=== PATIENT | male | born 1955 | race Caucasian/White ===

== ENCOUNTER → 2016-04-12 | Outpatient (CLI) | payer BC ==
[2016-04-12 13:33] LABS: BLOOD UREA NITROGEN 14 mg/dL (7-22); CALCIUM 9.5 mg/dL (8.7-10.7); CHLORIDE 106 meq/L (98-112); CREATININE 0.7 mg/dL (0.70-1.50); EST GLOMERULAR FILTRATION > 60 (>60 ml/min/1.73m(2)); GLUCOSE 143 mg/dL (78-110); POTASSIUM 4.1 meq/L (3.8-5.2); SODIUM 142 meq/L (135-145)
[2016-04-12 13:34] LABS: ASPARTATE AMINO TRANSFERASE 39 IU/L (21-57); HDL CHOLESTEROL 31 mg/dL (40-150); TRIGLYCERIDES 182 mg/dL (44-200)
[2016-04-15 08:30] LABS: CREATININE, URINE 97.4 MG/DL (15-500)
[2016-04-16 08:58] LABS: MEAN BLOOD GLUCOSE (CALC) 190.39 mg/dL
[2016-04-16 08:59] LABS: HEMOGLOBIN A1C 8.3 % (4.2-6.0)
== END ==
LOC: LAB 07:37
PROVIDERS: ATTEND Internal Medicine
DX: E11.9 Type 2 diabetes mellitus without complications (principal); E78.5 Hyperlipidemia, unspecified; I10 Essential (primary) hypertension
CPT/HCPCS: 80053; 80061; 82043; 83036

== ENCOUNTER 2016-04-21 10:09 | Outpatient (CLI) | payer BC ==
[~2016-04-21 10:09] MED LIST: IMMUNE GLOBULIN IV SCH; NORMAL SALINE 10 ML SYRINGE FLUSH IVP PRN
[2016-04-21 10:47] VITALS: RESP 20; TEMP 97.6
== END 2016-04-21 19:25 | disposition home or self-care (01) ==
LOC: IV THERAPY 10:09
PROVIDERS: ATTEND Emergency Medicine
DX: G61.81 Chronic inflammatory demyelinating polyneuritis (principal)
CPT/HCPCS: 96365; 96366; 99211; J1561 ×2

== ENCOUNTER 2016-05-26 08:59 | Outpatient (CLI) | payer BC ==
[2016-05-26] MEDS ORDERED: IMMUNE GLOBULIN IV SCH ×2 (09:00)
[2016-05-26 13:07] VITALS: RESP 16; TEMP 97.2
== END 2016-05-26 18:10 | disposition home or self-care (01) ==
LOC: IV THERAPY 08:59
PROVIDERS: ATTEND Emergency Medicine
DX: G61.81 Chronic inflammatory demyelinating polyneuritis (principal)
CPT/HCPCS: 96365; 96366; J1561 ×2; 99211

== ENCOUNTER 2016-06-23 09:03 | Outpatient (CLI) | payer BC ==
[~2016-06-23 09:03] MED LIST changes: +IMMUNE GLOBULIN 10% IV ONE; -IMMUNE GLOBULIN IV SCH; +LIDOCAINE W/ SODIUM BICARB 0.5 ML SYR SUBD PRN
[2016-06-23 09:31] VITALS: RESP 18; TEMP 98
== END 2016-06-23 18:54 | disposition home or self-care (01) ==
LOC: IV THERAPY 09:03
PROVIDERS: ATTEND Personal Emergency Response Attendant
DX: G61.81 Chronic inflammatory demyelinating polyneuritis (principal)
CPT/HCPCS: 96365; 96366; 99211; J1561 ×3

== ENCOUNTER → 2016-07-13 | Outpatient (CLI) | payer BC ==
[2016-07-13 07:49] LABS: CREATININE, URINE 100.8 MG/DL (15-500); HEMOGLOBIN A1C 6.97 % (4.2-6.0)
== END ==
LOC: LAB 07:24
PROVIDERS: ATTEND Internal Medicine
DX: E11.9 Type 2 diabetes mellitus without complications (principal); Z79.4 Long term (current) use of insulin
CPT/HCPCS: 36415; 82043; 83036

== ENCOUNTER 2016-07-20 09:02 | Outpatient (CLI) | payer BC ==
[~2016-07-20 09:02] MED LIST changes: -IMMUNE GLOBULIN 10% IV ONE
[2016-07-20 10:01] VITALS: RESP 18; TEMP 97.9
== END 2016-07-20 18:23 | disposition home or self-care (01) ==
LOC: IV THERAPY 09:02
PROVIDERS: ATTEND Emergency Medicine
DX: G61.81 Chronic inflammatory demyelinating polyneuritis (principal)
CPT/HCPCS: 96365; 96366; 99211; J1561 ×3

== ENCOUNTER 2016-08-18 09:08 | Outpatient (CLI) | payer BC ==
[2016-08-18 09:45] VITALS: RESP 20; TEMP 98.2
== END 2016-08-18 20:02 | disposition other institution (70) ==
LOC: IV THERAPY 09:08
PROVIDERS: ATTEND Personal Emergency Response Attendant
DX: G61.81 Chronic inflammatory demyelinating polyneuritis (principal)
CPT/HCPCS: 96365; 96366; 99211; J1561 ×3

== ENCOUNTER 2016-08-18 19:56 | Observation (INO) | payer BC ==
[2016-08-18] MEDS ORDERED: LIDOCAINE W/ SODIUM BICARB 0.5 ML SYR SUBD PRN (20:02)
[2016-08-18] MEDS ORDERED: ACETAMINOPHEN 325 MG TABLET PO PRN (20:02)
[2016-08-18] MEDS ORDERED: CALCIUM CARBONATE 500 MG (TUMS) CHEWABLE TABLET PO PRN (20:02)
[2016-08-18] MEDS ORDERED: ONDANSETRON 4 MG/2 ML VIAL IVP PRN (20:02)
[2016-08-18] MEDS ORDERED: NORMAL SALINE 10 ML SYRINGE FLUSH IVP PRN (20:02)
[2016-08-18] MEDS ORDERED: SODIUM CHLORIDE 0.9% IV ONE (20:05)
[2016-08-18] MEDS ORDERED: METHYLPREDNISOLONE SUCC IV ONE (20:05)
[2016-08-18] MEDS ORDERED: LORATADINE 10 MG TABLET PO ONE (20:05)
[2016-08-18] MEDS ORDERED: ALBUTEROL SULFATE 8.5 GM HFA INHALER INH PRN (20:06)
[2016-08-18] MEDS ORDERED: Insulin Sliding Scale Protocol SUBCUT PRN (20:07)
[2016-08-18] MEDS ORDERED: DEXTROSE 31 GM GEL PO PRN (20:07)
[2016-08-18] MEDS ORDERED: DEXTROSE 50%-WATER SYRINGE 50 ML SYRINGE IVP PRN (20:07)
[2016-08-18] MEDS ORDERED: Glucagon Inj Vial 1 MG/ML VIAL IM PRN (20:07)
--- NOTE | 2016-08-18 20:15 | PDOC ---
History and Physical - History of Present Illness Date and Time of Service: 08/18/2016, 2012 Chief Complaint: Tongue swelling History of Present Illness: This very pleasant 60-year-old male who has chronic inflammatory demyelinating polyneuropathy, diabetes mellitus type II, hypercholesterolemia, and hypertension, that have led him to have to use IVIG therapy, and he was here today for an infusion prior to going to [place] as it does help his legs feel better. During his infusion, he developed a rash on his back which has happened before and he usually takes Benadryl for this and it seems to help. This time, however, he had to take a second dose of Benadryl. His tongue swelled and his face swelled. He was breathing okay and did not complain of any wheezing, shortness breath, or chest pain. He denied any GI symptoms of nausea, vomiting, diarrhea, or constipation. Blood pressures are presumably normal. The patient has never had this reaction to IVIG therapy before. He has had several doses and is been on this medication since March 2015. He states to me that he was going to visit with his neurologist, Dr. Etienne, and was going to switch soon to CellCept or possibly a different medication. Even steroids. I was called by the nurse providing the infusion as the intervention in this situation. Nothing was tried prior for these symptoms except the Benadryl as mentioned. Past Medical History Medical History: 1. Diabetes mellitus, type 2 (Onset less than 10 years. Early slowly more uncomfortable neuropathy in [place] distal feet. No known retinopathy or nephropathy. No CV disease. ). 2. CIDP (chronic inflammatory demyelinating polyneuropathy), with primarily leg weakness. 3. Asthma ( Seasonal with exposure to allergans, particularly when cutting grass. Singular helpful. Rarelu uses an inhaler. Rare wheezing with exposure. No exercise intolerance.). 4. BPH. 5. Hypertension. 6. Hypercholesterolemia. 7. Peripheral neuropathy Surgical History: 1. Right knee surgery. 2. Right hip replacement. 3. Right ankle surgery. 4. Right elbow surgery. 5. Right shoulder surgery. 6. Cataract removal Pertinent Family History: He states his mother has autoimmune disease. Past Social History: Does not smoke or drink. for 28 years. Has 2 healthy children. 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 Tobacco Use: Never Smoker Substance Use Type: None Alcohol Use: None Medication / Allergies Home Medications: Home Medications Medication Instructions Recorded Confirmed Type Aspirin 81 mg ORAL QD 90 Days 08/31/10 05/26/16 Clinic Cholecalciferol (Vitamin D3) 1 cap PO DAILY cap 02/24/13 05/26/16 History [Vitamin D3] Cinnamon Bark [Cinnamon] 1 cap PO BID cap 02/24/13 05/26/16 History Multivitamin [Multivitamins] 1 tab PO DAILY tab 02/24/13 05/26/16 History Blood Sugar Diagnostic [Onetouch 1 each IN QD #100 strip 05/18/14 05/26/16 Clinic Ultra Test Strips] [place]-3 Fatty Acids [Fish Oil] 300 mg PO DAILY 03/01/15 05/26/16 History [place], Insulin Disposable [Pen 1 each MC QD #100 each 05/04/16 05/26/16 Clinic [place]] Metformin HCl 1 tab ORAL BID #180 tab 07/12/16 Clinic Canagliflozin [Invokana] 1 tab PO DAILY #90 tab 07/13/16 Clinic Duloxetine HCl [Cymbalta] 1 cap PO DAILY #90 cap 07/13/16 Clinic Glipizide 1 tab PO BID #180 tab 07/13/16 Clinic Liraglutide [Victoza 3-Ant] 1.8 mg SQ DAILY #6 each 07/13/16 Clinic Olmesartan Medoxomil [Benicar] 1 tab PO QD #90 tab 07/13/16 Clinic Pregabalin [Lyrica] 2 cap ORAL BID #360 capsule 07/13/16 Clinic Rosuvastatin Calcium [Crestor] 1 tab ORAL QHS #90 tab 07/13/16 Clinic Tamsulosin HCl 1 cap ORAL QD #90 capsule 08/18/16 Clinic Allergies/Adverse Reactions: Allergies Allergy/AdvReac Type Severity Reaction Status Date / Time amlodipine Allergy Intermediate RASH Verified 08/18/16 09:50 atorvastatin Allergy Intermediate RASH Verified 08/18/16 09:50 PIEDAD Inhibitors AdvReac Intermediate Chronic Verified 08/18/16 09:50 cough atorvastatin calcium AdvReac Intermediate myalgia Verified 08/18/16 09:50 [From Lipitor] amlodipine besylate AdvReac Mild peripheral Verified 08/18/16 09:50 [From Norvasc] edema Review of Systems - Review of Systems All Systems: Reviewed & No Additional Complaints Except as Stated (I did a 12 point review of systems and it was negative except for that stated in history present illness and that noted below.) - Constitutional Constitutional: REPORTS: Weight Loss (A 13 pounds, but states most of this was in the lower extremities.) - Mouth/Throat Mouth/Throat Exam: REPORTS: Other (Swollen tongue) - Respiratory Respiratory: REPORTS: Negative System Review - Cardiovascular Cardiovascular: REPORTS: Edema (Gets edema in his lower extremity.) - Gastrointestinal Gastrointestinal / Abdominal: REPORTS: Negative System Review - Genitourinary Genitourinary: REPORTS: Other (Controlled BPH with Flomax) - Musculoskeletal Musculoskeletal: REPORTS: Muscle Pain (Muscle pain and weakness are primarily noted in the lower extremities. This is due to the chronic inflammatory demyelinating neuropathy) - Additonal Details Additional ROS Details: Skin rash as discussed on back. Exam - Vitals Vital Signs: Vital Signs Height 6 ft 2 in Vital Signs - Last Taken Temperature 96.9 F 08/18/16 20:15 Pulse Rate 84 08/18/16 20:15 Respiratory Rate 20 08/18/16 20:15 Blood Pressure 128/93 08/18/16 20:15 Pulse Ox 95 08/18/16 20:15 On room air - General General Appearance: POSITIVE: No Acute Distress, Cooperative - Head Head Exam: POSITIVE: Normal Inspection, Normocephalic, Atraumatic - Eye Eye Exam: POSITIVE: EOMI, No Scleral Icterus - ENT ENT Exam: POSITIVE: Mucous Membranes Moist Additonal ENT Exam Details: Tongue was quite swollen. Sometimes the words that the patient spoke were spoken with a thick list which is not normal for him. This was due to the enlarged tongue. The patient's right cheek and face was swollen compared to the left. In fact about twice the size. - Neck Neck Exam: POSITIVE: Normal Inspection, No Tenderness, No Thyromegaly - Respiratory Respiratory Exam: POSITIVE: Clear to Auscultation - Bilaterally, Breathing Non Labored, Normal to Percussion and Palpation - Cardiovascular Cardiovascular Exam: POSITIVE: RRR, No Murmur, No Clicks, No Gallops, No Rubs, No JVD - GI/Abdominal GI/Abdominal Exam: POSITIVE: Normal Bowel Sounds, Non Tender, Non Distended, Soft - Rectal Rectal Exam: POSITIVE: Deferred - External Exam: POSITIVE: Deferred Exam: POSITIVE: Deferred - Extremities Extremities Exam: POSITIVE: No Clubbing Present, No Edema Present, No Cyanosis Present - Back Back Exam: POSITIVE: Normal Inspection, No CVA Tenderness, Rash Noted (Very slight macular rash on the lower aspect of the patient's back with minimal erythema.) - Neurological Neurological Exam: POSITIVE: Alert, Oriented x 3, No Facial Droop, Speech Intact / Clear, Moves All Extremities Equally, Abnormal Gait (The patient's gait is slightly antalgic. This is his baseline since he developed chronic inflammatory demyelinating polyneuropathy) - Psychiatric Psychiatric Exam: POSITIVE: Normal Affect, Normal Mood - Integumentary Integumentary Exam: POSITIVE: Rash (Rash as mentioned on back, more prominent on the right side than the left.) Results - Labs Labs - Last 24 Hours: I am ordering a comprehensive metabolic panel, a serum IgE level. I am also ordering a CBC with differential. I will get an ESR level as well Assessment and Plan - Patient Problems (1) Acute allergic reaction Status: Acute Qualifiers: Encounter type: initial encounter Qualified Description: Acute allergic reaction, initial encounter Qualifier Code(s): (T78.40XA) Allergy , unspecified, initial encounter (2) Chronic inflammatory demyelinating polyneuropathy Status: Acute (3) Diabetes mellitus type II, controlled Status: Acute Qualifiers: Diabetes mellitus complication status: with neurologic complications Diabetes mellitus complication detail: with autonomic neuropathy Diabetes mellitus termite control service representative insulin use: without termite control service representative use Qualified Description : Controlled type 2 diabetes mellitus with diabetic autonomic neuropathy, without long-term current use of insulin Qualifier Code(s): (E11.43) Type 2 diabetes mellitus with diabetic autonomic (poly)neuropathy (4) Hypertension Status: Acute Qualifiers: Hypertension type: essential hypertension Qualified Description: Essential hypertension Qualifier Code(s): (I10) Essential (primary) hypertension (5) Hypercholesterolemia Status: Acute (6) Peripheral neuropathy Status: Acute Qualifiers: Peripheral neuropathy type: chronic inflammatory demyelinating polyneuritis Qualified Description: Chronic inflammatory demyelinating polyneuritis Qualifier Code(s): (G61.81) Chronic inflammatory demyelinating polyneuritis - Assessment / Plan Additional Assessment/Plan Details: Admit the patient for observation. The patient has 2 of 4 systems involved. Allergic reaction, including respiratory system and skin. GI system and vascular system are not involved as of yet. Given the reaction with tongue swelling and facial swelling and rash, I think the patient needs to be monitored in the hospital with steroids/ antihistamines/H2 blockers/atypical antihistamines with medicines like Claritin. If the patient improves overnight, then I think we could potentially discharge him home on 2 weeks of oral medications to help prevent any delayed reactions. Monitor blood pressures. Keep the patient on telemetry monitoring. IV fluids. Continue home medications. Some of the medication such as cinnamon and fish oil will be held. They can be resumed on an outpatient basis. Ultimately, I think the IVIG probably needs to stop as this could be indicative of an allergic response. Patient could also be at risk for serum sickness if he continues this medication. I will get a serum IgE level to look at that as well. I discussed this with the patient and his . I discussed the above plan with the patient and his and they agreed Photo / Body Diagrams - Uploaded Photos Uploaded Photos:
[2016-08-18 20:47] LABS: BASOPHILS # (AUTO) 0.02 10*3/UL; BASOPHILS % (AUTO) 0.4 % (0-1); EOSINOPHILS # (AUTO) 0.09 10*3/UL; EOSINOPHILS % (AUTO) 1.7 % (0-8); HEMATOCRIT 47.1 % (42.0-52.0); LYMPHOCYTES # (AUTO) 0.99 10*3/uL; MEAN CORPUSCULAR HEMOGLOBIN 31.3 PG (27-31); MEAN CORPUSCULAR VOLUME 92.2 FL (80-90); MEAN PLATELET VOLUME 10.1 FL (7.4-12.2); MONOCYTES # (AUTO) 0.34 10*3/UL (0.3-0.8); MONOCYTES % (AUTO) 6.5 % (5-15); NEUTROPHILS # (AUTO) 3.82 10*3/UL; NEUTROPHILS % (AUTO) 72.4 % (50-80); RED BLOOD COUNT 5.11 10^6/uL (4.70-6.10)
[2016-08-18 20:48] LABS: PLATELET MORPHOLOGY COMMENT NORMAL MORPHOLOGY (NORM); RBC MORPHOLOGY COMMENT NORMAL MORPHOLOGY (NORM); WBC MORPHOLOGY COMMENT NORMAL MORPHOLOGY (NORM)
[2016-08-18] MEDS: Sodium Chloride 0.9% 1,000 ML PRIMARY IV SCH (20:49)
[2016-08-18 20:55] LABS: BLOOD UREA NITROGEN 22 mg/dL (7-22); CALCIUM 9.4 mg/dL (8.7-10.7); EST GLOMERULAR FILTRATION > 60 (>60 ml/min/1.73m(2)); SERUM ALBUMIN 4.1 g/dL (3.5-4.8)
[2016-08-18] MEDS ORDERED: Rosuvastatin Tab 20 MG TAB PO SCH (21:00)
[2016-08-18] MEDS: Pregabalin Cap 150mg capsule PO SCH (22:17)
[2016-08-18] MEDS: diphenhydrAMINE 25 MG CAPSULE PO SCH (22:18)
[2016-08-18] MEDS: Famotidine Inj 20 MG in Normal Saline Flush 10 ML IVP SCH (22:18)
[2016-08-19] MEDS: diphenhydrAMINE 25 MG CAPSULE PO SCH ×2 (03:20→08:48)
[2016-08-19] MEDS: methylPREDNISolone 125 MG/2 ML VIAL IVP SCH ×2 (03:21→09:31)
[2016-08-19] MEDS: Sodium Chloride 0.9% 1,000 ML PRIMARY IV SCH (05:10)
[2016-08-19 05:59] LABS: BASOPHILS # (AUTO) 0.01 10*3/UL; BASOPHILS % (AUTO) 0.2 % (0-1); EOSINOPHILS # (AUTO) 0.01 10*3/UL; EOSINOPHILS % (AUTO) 0.2 % (0-8); HEMATOCRIT 46.6 % (42.0-52.0); HEMOGLOBIN 15.8 g/dL (14.0-18.0); LYMPHOCYTES # (AUTO) 0.52 10*3/uL; MEAN CORPUSCULAR HEMOGLOBIN 31.2 PG (27-31); MEAN CORPUSCULAR HGB CONC 33.9 g/dL (33-37); MEAN CORPUSCULAR VOLUME 91.9 FL (80-90); MEAN PLATELET VOLUME 10.6 FL (7.4-12.2); MONOCYTES # (AUTO) 0.03 10*3/UL (0.3-0.8); MONOCYTES % (AUTO) 0.6 % (5-15); NEUTROPHILS # (AUTO) 4.07 10*3/UL; NEUTROPHILS % (AUTO) 87.8 % (50-80); RED BLOOD COUNT 5.07 10^6/uL (4.70-6.10)
[2016-08-19 06:16] LABS: BLOOD UREA NITROGEN 24 mg/dL (7-22); CALCIUM 9.5 mg/dL (8.7-10.7); EST GLOMERULAR FILTRATION > 60 (>60 ml/min/1.73m(2))
[2016-08-19 06:33] LABS: PLATELET MORPHOLOGY COMMENT NORMAL MORPHOLOGY (NORM); RBC MORPHOLOGY COMMENT NORMAL MORPHOLOGY (NORM); WBC MORPHOLOGY COMMENT NORMAL MORPHOLOGY (NORM)
[2016-08-19] MEDS ORDERED: Insulin Lispro Flexpen 300 UNIT/3 ML INSULN.PEN SUBCUT SCH (07:00)
[2016-08-19] MEDS ORDERED: metFORMIN 500 MG TABLET PO SCH (07:00)
[2016-08-19] MEDS ORDERED: GlipiZIDE Tab 5 MG TABLET PO SCH (07:00)
[2016-08-19 08:00] VITALS: RESP 16; TEMP 97.8
[2016-08-19] MEDS: Famotidine Inj 20 MG in Normal Saline Flush 10 ML IVP SCH (08:45)
[2016-08-19] MEDS: Pregabalin Cap 150mg capsule PO SCH (08:47)
[2016-08-19] MEDS ORDERED: Multivitamin Tab 1 TAB PO SCH (09:00)
[2016-08-19] MEDS ORDERED: DULOXETINE 30 MG CAPSULE PO SCH (09:00)
[2016-08-19] MEDS ORDERED: LORATADINE 10 MG TABLET PO SCH (09:00)
[2016-08-19] MEDS ORDERED: TAMSULOSIN 0.4 MG CAPSULE PO SCH (09:00)
[2016-08-19] MEDS ORDERED: ASPIRIN 81 MG (BABY) CHEWABLE TABLET PO SCH (09:00)
[2016-08-19] MEDS ORDERED: CHOLECALCIFEROL 1000 IU TABLET PO SCH (09:00)
[2016-08-19] MEDS ORDERED: CANAGLIFLOZIN PO SCH (09:00)
--- NOTE | 2016-08-19 10:28 | DCSUMMARY ---
Hospitalization Summary Admit Date: 08/18/16 Discharge Date: 08/19/16 Primary Diagnosis:: allergic reaction to IVIG Hospital Course: This is a very pleasant 60-year-old male with CIDP, diabetes mellitus, hypertension, hypercholesterolemia, neuropathy, who presented with swelling of his tongue and cheek and a rash during and after an infusion of IVIG. He takes that for his CIDP. We admitted the patient for observation, particularly in the setting of this possibly being a serum sickness reaction versus just an allergic reaction and the patient did very well with Solu-Medrol, fluids, H2 blockers, antihistamines, and time. His tongue is no longer swollen and his cheek is back to normal size. He had no problems with shortness of breath. No hypotension was noted. The patient denies any chest pain or shortness breath. He states overall he is back to his normal state of health. Patient is traveling to [place] and is flying out Sunday, and I think she is okay to go on his trip. I have warned him and his that there could be a secondary allergic reaction that flares in a week or 2, but we will try to prevent that with medications. I have advised him not to go on IVIG in the future. I will added to his allergy list. We do have an IgE level pending and we also have a vitamin B12 and folate level pending. Assessment and Plan: 1. As per discharge assessments noted 2. Disposition: Patient is discharged home. 3. Condition on discharge, stable and improved. 4. Diet: regular diet/diabetic diet 5. Activities: resume normal activities 6. Follow-Up: 1. See Dr. Brown upon return from [place] 2. 7. Medications at the Time of Discharge: Home Medications Medication Instructions Recorded Confirmed Type Aspirin 81 mg ORAL QD 90 Days 08/31/10 05/26/16 Clinic Cholecalciferol (Vitamin D3) 1 cap PO DAILY cap 02/24/13 05/26/16 History [Vitamin D3] Cinnamon Bark [Cinnamon] 1 cap PO BID cap 02/24/13 05/26/16 History Multivitamin [Multivitamins] 1 tab PO DAILY tab 02/24/13 05/26/16 History Blood Sugar Diagnostic [Onetouch 1 each IN QD #100 strip 05/18/14 05/26/16 Clinic Ultra Test Strips] [place]-3 Fatty Acids [Fish Oil] 300 mg PO DAILY 03/01/15 05/26/16 History [place], Insulin Disposable [Pen 1 each MC QD #100 each 05/04/16 05/26/16 Clinic [place]] Metformin HCl 1 tab ORAL BID #180 tab 07/12/16 Clinic Canagliflozin [Invokana] 1 tab PO DAILY #90 tab 07/13/16 Clinic Duloxetine HCl [Cymbalta] 1 cap PO DAILY #90 cap 07/13/16 Clinic Glipizide 1 tab PO BID #180 tab 07/13/16 Clinic Liraglutide [Victoza 3-Ant] 1.8 mg SQ DAILY #6 each 07/13/16 Clinic Olmesartan Medoxomil [Benicar] 1 tab PO QD #90 tab 07/13/16 Clinic Pregabalin [Lyrica] 2 cap ORAL BID #360 capsule 07/13/16 [facility] Rosuvastatin Calcium [Crestor] 1 tab ORAL QHS #90 tab 07/13/16 Clinic Tamsulosin HCl 1 cap ORAL QD #90 capsule 08/18/16 Clinic Albuterol [PROVENTIL HFA] 1 - 2 inh IH .Q4-6H PRN #1 inhaler 08/19/16 Rx Loratadine [Claritin] 10 mg PO DAILY #14 tablet 08/19/16 Rx Ranitidine HCl [Zantac 75] 75 mg PO BID #30 tab 08/19/16 Rx methylPREDNISolone Dose Pack 1 each PO ASDIR #1 pkg 08/19/16 Rx [Medrol Dose Pack] 8. Time, care, counseling and coordination of care for this discharge is greater than 30 minutes. Exam - Vitals Vital Signs: Vital Signs Temperature 97.8 F Temperature Source Temporal Artery Scan Pulse Rate [Pulse Oximeter] 112 Pulse Rate 110 Respiratory Rate 16 Blood Pressure [Right Arm] 133/75 Pulse Ox 91 Oxygen Delivery Method Room Air Height 6 ft 2 in Weight 249 lb 3.2 oz - General General Appearance: POSITIVE: No Acute Distress, Cooperative - Head Head Exam: POSITIVE: Normal Inspection, Normocephalic, Atraumatic - Eye Eye Exam: POSITIVE: No Scleral Icterus - ENT ENT Exam: POSITIVE: Normal Exam, Mucous Membranes Moist Additonal ENT Exam Details: Tongue is down to normal size. - Respiratory Respiratory Exam: POSITIVE: Clear to Auscultation - Bilaterally, Breathing Non Labored - Cardiovascular Cardiovascular Exam: POSITIVE: No Murmur, No Clicks, No Gallops, No Rubs, Tachycardia - GI/Abdominal GI/Abdominal Exam: POSITIVE: Normal Bowel Sounds, Non Tender, Non Distended, Soft - Extremities Extremities Exam: POSITIVE: No Clubbing Present, No Edema Present, No Cyanosis Present - Neurological Neurological Exam: POSITIVE: Alert, Oriented x 3, No Facial Droop, Speech Intact / Clear, Moves All Extremities Equally Data Perinent Studies: Laboratory Results 08/18/16 08/19/16 Range/Units 20:38 04:45 WBC 5.27 4.64 L (4.8-10.8) 10^3/uL RBC 5.11 5.07 (4.70-6.10) 10^6/uL Hgb 16.0 15.8 (14.0-18.0) g/dL Hct 47.1 46.6 (42.0-52.0) % MCV 92.2 H 91.9 H (80-90) FL MCH 31.3 H 31.2 H (27-31) PG MCHC 34.0 33.9 (33-37) g/dL RDW Std Deviation 48.9 47.6 (39-50) fL RDW Coeff of [place] 14.9 H 14.7 H (11.5-14.5) % Plt Count 196 196 (140-350) 10*3/uL MPV 10.1 10.6 (7.4-12.2) FL Immature Gran % (Auto) 0.2 0 (0-5) % Neut % (Auto) 72.4 87.8 H (50-80) % Lymph % (Auto) 18.8 11.2 (10-50) % [place] % (Auto) 6.5 0.6 L (5-15) % Eos % (Auto) 1.7 0.2 (0-8) % Baso % (Auto) 0.4 0.2 (0-1) % Immature Gran # (Auto) 0.01 0 10*3/UL Neut # (Auto) 3.82 4.07 10*3/UL Lymph # (Auto) 0.99 0.52 10*3/uL [place] # (Auto) 0.34 0.03 L (0.3-0.8) 10*3/UL Eos # (Auto) 0.09 0.01 10*3/UL Baso # (Auto) 0.02 0.01 10*3/UL WBC Morphology Comment Normal morphology Normal morphology (NORM) Plt Morphology Comment Normal morphology Normal morphology (NORM) RBC Morph Comment Normal morphology Normal morphology (NORM) ESR 7 (0-15) MM/HR Sodium 139 138 (135-145) meq/L Potassium 4.4 4.6 (3.8-5.2) meq/L Chloride 104 106 (98-112) meq/L Carbon Dioxide 22 L 21 L (23-33) meq/L Anion Gap 13 11 (5-20) BUN 22 24 H (7-22) mg/dL Creatinine 0.8 0.8 (0.70-1.50) mg/dL Estimated GFR > 60 > 60 (>60 ml/min/1.73m(2)) BUN/Creatinine Ratio 27.50 H 30.00 H (6-20) Glucose 141 H 270 H (78-110) mg/dL Calculated Osmolality 292.0 299.0 H (267-292) mOsm/kg Calcium 9.4 9.5 (8.7-10.7) mg/dL Total Bilirubin 0.5 (0.3-1.2) mg/dL AST 49 (21-57) IU/L ALT 50 (21-72) IU/L Alkaline Phosphatase 55 (38-126) IU/L Total Protein 9.1 H (6.1-8.0) g/dL Albumin 4.1 (3.5-4.8) g/dL Globulin 5.0 H (2.50-4.10) g/dL Albumin/Globulin Ratio 0.80 L (1.3-2.0) mg/g Patient Problems - Patient Problem List (1) Acute allergic reaction Current Visit: Yes Status: Resolved Qualifiers: Encounter type: subsequent encounter Qualified Description: Acute allergic reaction, subsequent encounter Qualifier Code(s): (T78.40XD) Allergy, unspecified, subsequent encounter (2) Chronic inflammatory demyelinating polyneuropathy Current Visit: Yes Status: Acute (3) Diabetes mellitus type II, controlled Current Visit: Yes Status: Acute Qualifiers: Diabetes mellitus complication status: with neurologic complications Diabetes mellitus complication detail: with autonomic neuropathy Diabetes mellitus director long term care insulin use: without jail use Qualified Description : Controlled type 2 diabetes mellitus with diabetic autonomic neuropathy, without long-term current use of insulin Qualifier Code(s): (E11.43) Type 2 diabetes mellitus with diabetic autonomic (poly)neuropathy, (Z79.4) director long term care (current) use of insulin (4) Hypertension Current Visit: Yes Status: Acute Qualifiers: Hypertension type: essential hypertension Qualified Description: Essential hypertension Qualifier Code(s): (I10) Essential (primary) hypertension (5) Hypercholesterolemia Current Visit: Yes Status: Acute (6) Peripheral neuropathy Current Visit: Yes Status: Acute Qualifiers: Peripheral neuropathy type: chronic inflammatory demyelinating polyneuritis Qualified Description: Chronic inflammatory demyelinating polyneuritis Qualifier Code(s): (G61.81) Chronic inflammatory demyelinating polyneuritis
== END 2016-08-19 10:45 | disposition home or self-care (01) ==
LOC: MED/SURG 20:02
PROVIDERS: ADMIT Family Medicine; ATTEND Family Medicine
DX: R22.0 Localized swelling, mass and lump, head (principal); T50.Z15A Adverse effect of immunoglobulin, initial encounter
CPT/HCPCS: 36415 ×2; 80048; 80053; 82607; 82746; 82785; 82948 ×2; 85025 ×2; 85652; 94761; 96374 ×2; J1815; J2930 ×2; Q0163 ×2; J7030; J7050

== ENCOUNTER 2016-09-29 08:54 | Outpatient (CLI) | payer BC ==
[2016-09-29] MEDS ORDERED: ACETAMINOPHEN 500 MG TABLET PO PRN (09:00)
[2016-09-29] MEDS ORDERED: diphenhydrAMINE 25 MG CAPSULE PO PRN (09:00)
[2016-09-29 09:21] VITALS: RESP 18
[2016-09-29] MEDS: NORMAL SALINE 10 ML SYRINGE FLUSH IVP PRN (09:44)
[2016-09-29] MEDS: methylPREDNISolone 125 MG/2 ML VIAL IVP PRN (09:44)
[2016-09-29] MEDS: RITUXIMAB IV SCH (09:53)
[2016-09-29] MEDS: SODIUM CHLORIDE 0.9% IV SCH (09:53)
[2016-09-29] MEDS: LIDOCAINE W/ SODIUM BICARB 0.5 ML SYR SUBD PRN (09:55)
[2016-09-29 19:00] VITALS: TEMP 98.1
== END 2016-09-29 18:59 | disposition home or self-care (01) ==
LOC: IV THERAPY 08:54
PROVIDERS: ATTEND Specialist
DX: G61.81 Chronic inflammatory demyelinating polyneuritis (principal)
CPT/HCPCS: 96365; 96366; 99211; J2930; J9310; J7030

== ENCOUNTER 2016-10-17 09:01 | Outpatient (CLI) | payer BC ==
[~2016-10-17 09:01] MED LIST changes: +ACETAMINOPHEN 500 MG TABLET PO ONE; +RITUXIMAB IV SCH; +SODIUM CHLORIDE 0.9% IV SCH; +diphenhydrAMINE 25 MG CAPSULE PO ONE; +methylPREDNISolone 125 MG/2 ML VIAL IV ONE
[2016-10-17 09:32] LABS: BASOPHILS # (AUTO) 0.04 10*3/UL; BASOPHILS % (AUTO) 0.8 % (0-1); EOSINOPHILS # (AUTO) 0.29 10*3/UL; EOSINOPHILS % (AUTO) 5.7 % (0-8); HEMATOCRIT 47.6 % (42.0-52.0); HEMOGLOBIN 16.4 g/dL (14.0-18.0); LYMPHOCYTES # (AUTO) 1.09 10*3/uL; MEAN CORPUSCULAR HEMOGLOBIN 31.4 PG (27-31); MEAN CORPUSCULAR HGB CONC 34.5 g/dL (33-37); MEAN CORPUSCULAR VOLUME 91.2 FL (80-90); MEAN PLATELET VOLUME 10.7 FL (7.4-12.2); MONOCYTES # (AUTO) 0.29 10*3/UL (0.3-0.8); MONOCYTES % (AUTO) 5.7 % (5-15); NEUTROPHILS # (AUTO) 3.34 10*3/UL; NEUTROPHILS % (AUTO) 65.6 % (50-80); RED BLOOD COUNT 5.22 10^6/uL (4.70-6.10)
[2016-10-17 10:31] LABS: PLATELET MORPHOLOGY COMMENT NORMAL MORPHOLOGY (NORM); RBC MORPHOLOGY COMMENT NORMAL MORPHOLOGY (NORM); WBC MORPHOLOGY COMMENT NORMAL MORPHOLOGY (NORM)
[2016-10-17 10:38] VITALS: RESP 18; TEMP 98.6
[2016-10-17 10:48] LABS: BLOOD UREA NITROGEN 24 mg/dL (7-22); CALCIUM 9.6 mg/dL (8.7-10.7); EST GLOMERULAR FILTRATION > 60 (>60 ml/min/1.73m(2)); SERUM ALBUMIN 4.5 g/dL (3.5-4.8)
== END 2016-10-17 14:52 | disposition home or self-care (01) ==
LOC: IV THERAPY 09:01
PROVIDERS: ATTEND Emergency Medicine
DX: G61.81 Chronic inflammatory demyelinating polyneuritis (principal)
CPT/HCPCS: 80053; 85025; 96365; 96366; 99211; J2930; J9310; J7030

== ENCOUNTER → 2016-10-20 | Outpatient (CLI) | payer BC ==
--- NOTE | 2016-10-20 12:33 | DI ---
KUB and UPRIGHT ABDOMEN, 10/20/2016 11:11 AM: Clinical History: Generalized abdominal pain. Previous Exam: None at this facility. There are no soft tissue or bony abnormalities. Bowel gas pattern, psoas margins, and flank stripes a re normal. There is no free air or fluid. There are no abnormal radiodensities. Reading: Normal KUB and upright exam.
[2016-10-20 12:37] LABS: BASOPHILS % (AUTO) 1.4 % (0-1); EOSINOPHILS % (AUTO) 1.4 % (0-8); HEMATOCRIT 51.9 % (42.0-52.0); HEMOGLOBIN 17.7 g/dL (14.0-18.0); MEAN CORPUSCULAR HEMOGLOBIN 30.6 PG (27-31); MEAN CORPUSCULAR HGB CONC 34.1 g/dL (33-37); MEAN CORPUSCULAR VOLUME 89.8 FL (80-90); MEAN PLATELET VOLUME 10.7 FL (7.4-12.2); MONOCYTES # (AUTO) 0.53 10*3/UL (0.3-0.8); MONOCYTES % (AUTO) 7.5 % (5-15); NEUTROPHILS # (AUTO) 4.85 10*3/UL; NEUTROPHILS % (AUTO) 68.2 % (50-80); RED BLOOD COUNT 5.78 10^6/uL (4.70-6.10)
[2016-10-20 12:39] LABS: PLATELET MORPHOLOGY COMMENT NORMAL MORPHOLOGY (NORM); RBC MORPHOLOGY COMMENT NORMAL MORPHOLOGY (NORM); WBC MORPHOLOGY COMMENT NORMAL MORPHOLOGY (NORM)
[2016-10-20 12:42] LABS: BLOOD UREA NITROGEN 16 mg/dL (7-22); BUN/CREATININE RATIO 17.77 (6-20); EST GLOMERULAR FILTRATION > 60 (>60 ml/min/1.73m(2)); SERUM ALBUMIN 4.7 g/dL (3.5-4.8)
== END ==
LOC: MOB RAD 11:14
PROVIDERS: ATTEND Physician Assistant Medical
DX: T80.89XA Other complications following infusion, transfusion and therapeutic injection, initial encounter (principal); R10.84 Generalized abdominal pain; R11.0 Nausea; R53.83 Other fatigue; R61 Generalized hyperhidrosis; K59.00 Constipation, unspecified
CPT/HCPCS: 36415; 74020; 80053; 85025